=== PATIENT | female | born 1975 | race Caucasian/White ===

== ENCOUNTER → 2017-06-10 | Outpatient (POV) | payer MEDICAID, SELFPAY | PROVIDERS: Family Provider Emergency Medicine; PCP Emergency Medicine; Visit Provider Specialist | DX: R53.1 Weakness (principal) | CPT/HCPCS: 95886; 95909 ==

== ENCOUNTER → 2017-08-02 11:52 | Outpatient (CLI) | payer MEDICAID, SELFPAY ==
[2017-08-02 13:06] LABS: Total Protein,Serum 7.4 gm/dL (6.4-8.2)
[2017-08-02 13:30] LABS: Erythrocyte Sedimentation Rate 26 mm/hr (0-20)
[2017-08-03 19:10] LABS: C-Reactive Protein, Cardiac 12.17 mg/L (0.00-3.00)
[2017-08-06 06:27] LABS: Lead, Blood None Detected ug/dL (0-19)
[2017-08-06 06:30] LABS: Arsenic, Blood 4 ug/L (2-23); Mercury, Blood None Detected ug/L (0.0-14.9)
== END ==
PROVIDERS: PCP Emergency Medicine; Visit Provider Emergency Medicine
DX: M79.603 Pain in arm, unspecified (principal)
CPT/HCPCS: 36415; 82175; 83655; 83825; 84155; 85651; 86141; 86617

== ENCOUNTER → 2017-08-19 12:20 | Outpatient (REF) | payer MEDICAID, SELFPAY ==
[2017-08-19 19:24] LABS: C-Reactive Protein 1.2 mg/L (0.0-0.9)
== END ==
LOC: LAB 12:20
PROVIDERS: Visit Provider Emergency Medicine
DX: G62.9 Polyneuropathy, unspecified (principal); M79.603 Pain in arm, unspecified; R52 Pain, unspecified
CPT/HCPCS: 86140

== ENCOUNTER → 2017-10-21 11:12 | Outpatient (CLI) | payer MEDICAID, SELFPAY ==
[2017-10-21 11:40] LABS: Basophils % 0.5 % (0.1-2.0); Eosinophils # 0.1 K/mm3 (0.0-0.4); Eosinophils % 1.3 % (0.1-12.0); Hemoglobin 14.9 g/dL (12.2-16.2); Lymphocytes # 2.4 K/mm3 (0.7-4.5); Lymphocytes % 29.9 K/mm3 (10-50); Mean Corpuscular HGB Conc 33.1 g/dL (31.8-35.4); Mean Corpuscular Hemoglobin 30.9 pg (27.0-31.2); Mean Corpuscular Volume 93.4 fl (81-99); Mean Platelet Volume 8.7 fl (7.4-10.4); Monocytes # 0.3 K/mm3 (0.1-1.0); Monocytes % 3.7 % (1.7-9.3); Neutrophils # 5.1 K/mm3 (1.8-7.8); Neutrophils % 64.5 % (37.0-80.0); Platelet Count 264 K/mm3 (142-424); Red Blood Count 4.82 M/mm3 (4.20-5.40); Red Cell Distribution Width 12.7 % (11.5-17.5); White Blood Count 7.9 K/mm3 (4.8-10.8)
[2017-10-21 16:20] LABS: Creatine Kinase 81 U/L (26-192)
[2017-10-22 11:19] LABS: Anti-Jo-1 <0.2 AI (0.0-0.9); Anti-Smith Antibody <0.2 AI (0.0-0.9); Antichromatin Antibodies <0.2 AI (0.0-0.9); Antiscleroderma-70 Antibodies <0.2 AI (0.0-0.9); RNP Antibodies <0.2 AI (0.0-0.9); Sjogren's Anti-SS-A <0.2 AI (0.0-0.9); Sjogren's Anti-SS-B <0.2 AI (0.0-0.9)
[2017-10-23 06:17] LABS: Aldolase 4.2 U/L (3.3-10.3); Anti-Centromere B Antibodies <0.2 AI (0.0-0.9); Anti-DNA (DS) Ab Qn 1 IU/mL (0-9); Folate 13.2 ng/mL (>3.0); Vitamin B12 339 pg/mL (232-1245)
== END ==
PROVIDERS: Family Provider Emergency Medicine; PCP Emergency Medicine; Visit Provider Specialist
DX: M25.529 Pain in unspecified elbow (principal); E66.3 Overweight
CPT/HCPCS: 36415; 82085; 82550; 82607; 82746; 85025; 86038

== ENCOUNTER → 2017-12-19 15:41 | Outpatient (CLI) | payer MEDICAID, SELFPAY | PROVIDERS: PCP Emergency Medicine; Visit Provider Nurse Practitioner Family | DX: G47.34 Idiopathic sleep related nonobstructive alveolar hypoventilation (principal); R53.83 Other fatigue | CPT/HCPCS: 95806 ==

== ENCOUNTER → 2018-01-15 08:30 | Outpatient (CLI) | payer MEDICAID, SELFPAY ==
--- NOTE | 2018-01-15 08:32 | US_ITS ---
US gallbladder Ordering Physician: Jhonny Bass MD Patient Age: 42 years: Female HISTORY: ITS.REASON: nausea, vomiting and diarrhea Nausea vomiting diarrhea TECHNIQUE: Right quadrant ultrasound COMPARISON :None FINDINGS Pancreas. Unremarkable. Head body and tail pancreas satisfactory. Liver. A few focal areas of minimal fatty change No significant focal lesions no bili ductal dilatation. The portal vein appears normal direction flow. Common duct normal diameter measuring less than 4 mm at hilum of liver. Right kidney 11.6 in length cortex well-maintained. Normal. Gallbladder. Numerous Scattered small polyps about the margin of the gallbladder. The larger proximal measuring 3 days 3.5 mm majority are quite small as seen in both the anterior and posterior wall. Upper normal gallbladder wall thickening otherwise seen. These polyps appear to be fixed to the wall and do not move between supine and decubitus imaging as per technologist.. No echogenic stones identified minimal sludge was noted IMPRESSION: ---- 1. Numerous small polyps of the gallbladder Minimal sludge in gallbladder No evident stones identified. 2. Liver. A few areas of subtle fatty changes noted but no focal lesion.
== END ==
PROVIDERS: Family Provider Emergency Medicine; PCP Emergency Medicine; Visit Provider Emergency Medicine
DX: R11.2 Nausea with vomiting, unspecified (principal); R19.7 Diarrhea, unspecified
CPT/HCPCS: 76705

== ENCOUNTER → 2018-02-05 10:12 | Outpatient (CLI) | payer MEDICAID, SELFPAY ==
--- NOTE | 2018-02-05 10:14 | NM_ITS ---
NM hepatobiliary w pharm HISTORY: ITS.REASON: RUQ pain ORDERING PHYSICIAN: ERIBERTO Purcell PATIENT AGE: 42 years COMPARISON: None DOSE: 8.35 MCI TC Choletec Inj Into RT ANT Fatty Meal Ensure. No pain reported with fatty meal FINDINGS: Homogeneous activity is present within the hepatic parenchyma. Activity is present in the gallbladder by 15 minutes. Activity is present in the small bowel by 20 minutes. The gallbladder ejection fraction is calculated to be 53% The patient did not report pain or other symptoms with fatty meal. IMPRESSION: Unremarkable hepatobiliary scan and gallbladder ejection fraction. No evidence of common or cystic duct obstruction with normal gallbladder ejection fraction
== END ==
PROVIDERS: Family Provider Emergency Medicine; PCP Emergency Medicine; Visit Provider Physician Assistant
DX: R10.9 Unspecified abdominal pain (principal)
CPT/HCPCS: 78227; A9537

== ENCOUNTER → 2018-02-11 09:56 | Outpatient (REF) | payer MEDICAID, SELFPAY ==
[2018-02-11 14:09] LABS: Amphetamine/Metha Screen,Urine Negative ng/mL (<1000); Barbiturates Screen,Urine Negative ng/mL (<200); Benzodiazepines Screen,Urine Negative ng/mL (<200); Cannabinoid Screen,Urine Negative ng/mL (<50); Cocaine Screen,Urine Negative ng/mL (<300); Methadone Screen,Urine Negative ng/mL (<300); Opiate Screen,Urine Negative ng/mL (<300); Phencyclidine Screen,Urine Negative ng/mL (<25)
== END ==
LOC: LAB 09:56
PROVIDERS: Visit Provider Nurse Practitioner Family
DX: R68.89 Other general symptoms and signs (principal)
CPT/HCPCS: 80305

== ENCOUNTER → 2018-03-24 10:33 | Outpatient (REF) | payer MEDICAID, SELFPAY ==
[2018-03-24 14:51] LABS: Amphetamine/Metha Screen,Urine Negative ng/mL (<1000); Barbiturates Screen,Urine Negative ng/mL (<200); Benzodiazepines Screen,Urine Negative ng/mL (<200); Cannabinoid Screen,Urine Negative ng/mL (<50); Cocaine Screen,Urine Negative ng/mL (<300); Methadone Screen,Urine Negative ng/mL (<300); Opiate Screen,Urine Negative ng/mL (<300); Phencyclidine Screen,Urine Negative ng/mL (<25)
== END ==
LOC: LAB 10:33
PROVIDERS: Visit Provider Emergency Medicine
DX: R68.89 Other general symptoms and signs (principal)
CPT/HCPCS: 80305

== ENCOUNTER → 2018-05-06 16:54 | Outpatient (CLI) | payer MEDICAID, SELFPAY ==
--- NOTE | 2018-05-06 16:56 | MM_ITS ---
MM Dig screening mamm BI w/CAD ORDERING PHYSICIAN : Kuldeep Henley MD PATIENT AGE: 42 years GENDER: Female COMPARISON: January 2016, April 2014, March 2011 INDICATION: ITS.REASON: Routine Screening Mammogram no hormones. No new complaints. . Positive family history: Mother with breast cancer age 32 TECHNIQUE: Standard CC and MLO images were obtained. R2 CAD reviewed. Additional axillary cc views bilaterally FINDINGS: Dense breast bilaterally. Mammography decreased sensitivity in breast of this diffuse increased density. Ultrasound can be useful compliment/augment to screening mammography in this setting, particularly if any palpable areas encountered. However the prior study is helpful and demonstrates a similar parenchymal pattern and distribution with no new areas of significant concern. CAD computer review highlights no 70 areas of concern either. . IMPRESSION: ... Stable mammogram. Dense breast bilaterally decreased sensitivity of mammography. Ultrasound can be useful compliment/augment mammography in breast of this increased density, particularly if any palpable areas encountered. However I see no new areas significant concern when compared to previous studies Follow up mammogram 1 year recommended . BI-RADS Category: 2 Benign Finding(s) RECOMMENDED FOLLOW-UP: 1YR 1 YEAR FOLLOW-UP (A letter has been sent to the patient regarding results of the study.)
== END ==
PROVIDERS: PCP Emergency Medicine; Visit Provider Nurse Practitioner Obstetrics & Gynecology
DX: Z12.31 Encounter for screening mammogram for malignant neoplasm of breast (principal)
CPT/HCPCS: 77067

== ENCOUNTER → 2018-10-27 10:35 | Outpatient (CLI) | payer MEDICAID, SELFPAY ==
[2018-10-27 14:27] LABS: Amphetamine/Metha Screen,Urine Negative ng/mL (<1000); Barbiturates Screen,Urine Negative ng/mL (<200); Benzodiazepines Screen,Urine Negative ng/mL (<200); Cannabinoid Screen,Urine Negative ng/mL (<50); Cocaine Screen,Urine Negative ng/mL (<300); Methadone Screen,Urine Negative ng/mL (<300); Opiate Screen,Urine Negative ng/mL (<300); Phencyclidine Screen,Urine Negative ng/mL (<25)
== END ==
PROVIDERS: PCP Nurse Practitioner Family; Visit Provider Nurse Practitioner Family
DX: R00.2 Palpitations (principal); G89.29 Other chronic pain
CPT/HCPCS: 80305; 93005; 93225; 93226

== ENCOUNTER → 2018-10-29 13:51 | Outpatient (CLI) | payer MEDICAID, SELFPAY ==
[2018-10-29 15:26] LABS: Basophils % 0.5 % (0.1-2.0); Eosinophils # 0.1 K/mm3 (0.0-0.4); Eosinophils % 1.8 % (0.1-12.0); Hematocrit 41.1 % (37.0-47.0); Hemoglobin 13.9 g/dL (12.2-16.2); Lymphocytes # 2.8 K/mm3 (0.7-4.5); Mean Corpuscular HGB Conc 33.8 g/dL (31.8-35.4); Mean Corpuscular Hemoglobin 30.6 pg (27.0-31.2); Mean Corpuscular Volume 90.5 fl (81-99); Mean Platelet Volume 8.2 fl (7.4-10.4); Monocytes # 0.3 K/mm3 (0.1-1.0); Monocytes % 3.8 % (1.7-9.3); Neutrophils # 4.5 K/mm3 (1.8-7.8); Platelet Count 283 K/mm3 (142-424); Red Blood Count 4.55 M/mm3 (4.20-5.40); Red Cell Distribution Width 13.2 % (11.5-17.5); White Blood Count 7.8 K/mm3 (4.8-10.8)
[2018-10-29 16:33] LABS: Alanine Aminotransferase 29 U/L (12-78); Albumin Level 3.4 gm/dL (3.4-5.0); Albumin/Globulin Ratio 0.9 (1.1-1.8); Alkaline Phosphatase 124 U/L (46-116); Aspartate Amino Transferase 10 U/L (15-37); Bilirubin,Total 0.3 mg/dL (0.2-1.0); Blood Urea Nitrogen 12 mg/dL (7-18); Calcium 8.8 mg/dL (8.5-10.1); Carbon Dioxide 24 mmol/L (21.0-32.0); Chloride 106 mmol/L (98-107); Chol/HDL Ratio 4.6 (1-3.5); Cholesterol 182 mg/dL (140-200); Creatinine,Serum 0.72 mg/dL (0.55-1.02); Estimated Glomerular Filt Rate 90 ml/min (>60); Free T4 (Free Thyroxine) 0.95 ng/dl (0.76-1.46); GFR (African American) 109 ML/MIN (>60); Globulin 3.7 gm/dl (1.3-3.2); Glucose 82 mg/dL (74-106); HDL Cholesterol 40 mg/dL (29-89); LDL Cholesterol 129 mg/dL (0-130); Sodium 140 mmol/L (136-145); Total Protein,Serum 7.1 gm/dL (6.4-8.2); Triglycerides 65 mg/dL (30-200); VLDL Cholesterol 13 mg/dL (0-40)
[2018-10-31 10:11] LABS: Vitamin D 25 Hydroxy 32.1 ng/mL (30.0-100.0)
== END ==
PROVIDERS: Visit Provider Nurse Practitioner Family
DX: R53.83 Other fatigue (principal); Z79.899 Other long term (current) drug therapy
CPT/HCPCS: 36415; 80053; 80061; 82652; 84439; 84443; 85025

== ENCOUNTER → 2018-11-07 09:55 | Outpatient (CLI) | payer MEDICAID, SELFPAY ==
[2018-11-07 11:55] LABS: C-Reactive Protein 1.9 mg/L (0.0-0.9)
[2018-11-07 11:59] LABS: Erythrocyte Sedimentation Rate 18 mm/hr (0-20)
[2018-11-09 17:31] LABS: Anti-Cyclic Citrullinated Pept 13 units (0-19)
== END ==
PROVIDERS: Nurse Practitioner Family; Visit Provider Internal Medicine Cardiovascular Disease
DX: R00.2 Palpitations (principal); E66.09 Other obesity due to excess calories; K21.9 Gastro-esophageal reflux disease without esophagitis; R06.00 Dyspnea, unspecified; R06.83 Snoring; R40.0 Somnolence; R53.83 Other fatigue; R94.31 Abnormal electrocardiogram [ECG] [EKG]; Z72.0 Tobacco use; R52 Pain, unspecified
CPT/HCPCS: 36415; 83880; 85651; 86140; 86200

== ENCOUNTER → 2018-11-20 13:29 | Outpatient (CLI) | payer MEDICAID, SELFPAY ==
--- NOTE | 2018-11-20 13:30 | CA_ITS ---
PROCEDURE: 2-D M-mode and color Doppler study INDICATIONS FOR THE TEST: Chest pain COPD Heart Murmur Tobacco SmokingX PalpitationsX FatigueX Syncope EdemaX HypertensionXDiabetes Mellitus Rheumatic Fever SOBXDOE ObesityXHyperlipidemiaX Family History HD Additional History PATIENT INFORMATION HEIGHT: 72 WEIGHT:271 GENDER: Female B/P:115/58 2-D/M-MODE INTERPRETATION: 2-D MEASUREMENTS OBSERVED VALUES IN CMS Right Ventricular Dimension (RVDd) 2.5 Interventricular Septum (Thickness)(IVsd) .7 Left Ventricular Internal Dimensions(LVIDd) 5.3 Left Ventricular Posterior Wall (Thickness)(LVPWd) .7 Aortic Root 3.3 Aortic Cusp Separation 1.8 Left Atrial Dimensions (LAD) 3.5 2D 1. Left atrium is normal size, left ventricle is normal size, there is no concentric left ventricular hypertrophy, visually estimated ejection fraction of 55% with no regional wall motion abnormality. 2. The right atrium and right ventricle are normal size and contractility. 3. The aortic, mitral and tricuspid valvular grossly normal. 4. The pulmonic valve is poorly visualized. 5. No significant pericardial effusion noted. DOPPLER INTERROGATION: Doppler interrogation of the aortic, mitral and tricuspid valvular presence of mild mitral and tricuspid regurgitation, tricuspid regurgitation jet velocity is inadequate for calculation of the right ventricular systolic pressure, diastolic parameters are within normal range. CONCLUSION: 1. Normal left ventricular size, preserved left ventricular systolic function, visually estimated ejection fraction of 55% with no regional wall motion abnormality. Diastolic parameters are within normal range. 2. Mild mitral and tricuspid regurgitation 3. No significant pericardial effusion noted.
== END ==
PROVIDERS: PCP Emergency Medicine; Visit Provider Internal Medicine Cardiovascular Disease
DX: R06.00 Dyspnea, unspecified (principal); R00.2 Palpitations; K21.9 Gastro-esophageal reflux disease without esophagitis; R94.31 Abnormal electrocardiogram [ECG] [EKG]; E66.09 Other obesity due to excess calories; R06.83 Snoring; R40.0 Somnolence; R53.83 Other fatigue; Z72.0 Tobacco use
CPT/HCPCS: 93306

== ENCOUNTER → 2019-02-16 08:03 | Outpatient (CLI) | payer MEDICAID, SELFPAY ==
--- NOTE | 2019-02-16 08:09 | MR_ITS ---
PROCEDURE: MR CERVICAL SPINE WO CON CLINICAL INDICATION: PAIN Neck pain and bilateral arm pain and numbness, headache COMPARISON: GARAGEMAN/O MRI-C-SPINE W/O from 01/09/2016 TECHNIQUE: Standard multiplanar multiecho sequences are performed without contrast. FINDINGS: There is slight reversal of the cervical lordosis. The cranial cervical junction has an unremarkable appearance. No malalignment. The C2-C3, C3-C4, and C4-C5 have an unremarkable appearance. C5-C6: There is narrowing of the canal at 10 mm without cord impingement. C6-C7: Narrowing of the canal is also noted at this level with minimal bulging of the disc with canal measuring 10 mm. There is a small disc osteophyte complex in the left foraminal and lateral region with mild left-sided foraminal narrowing. C7-T1: Unremarkable. No herniated disc or other significant anomaly evident and no significant change from the previous exam. The IMPRESSION: 1. Mild reversal of the cervical lordosis which may be due to patient positioning or muscle spasm. 2. 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 3. Small disc osteophyte complex left lateral and foraminal area at C6-C7 with mild left-sided foraminal narrowing. 4. Overall no significant change from the previous exam Dictated by: Boo Sánchez MD 02/17/2019 06:33 Signed by: <Electronically signed by Boo Sánchez MD in [place]> 02/17/2019 06:33
--- NOTE | 2019-02-16 08:09 | MR_ITS ---
PROCEDURE: MR LUMBAR SPINE WO CON CLINICAL INDICATION: PAIN Low back pain worse when bending, left leg numbness COMPARISON: TSW/O MRI-T-SPINE W/O from 01/09/2016 TECHNIQUE: Standard multiplanar multiecho sequences are performed without contrast. 3-D MIP and myelographic images are also rendered and reviewed FINDINGS: Normal alignment. The spinal cord ends at the L1 level. T11-T12: Small left paracentral disc protrusion without impingement. T12-L1, L1-L2, L2-L3, and L3-L4 have an unremarkable appearance. L4-5: Minimal bulging disc with small central disc protrusion with annular fissure noted. There is a small broad-based right paracentral and foraminal disc protrusion which is causing right lateral recess and foraminal narrowing and abutting the anterior aspect of the right L5 nerve root. L5-S1: Degenerate disc disease with mild bulging disc along with facet hypertrophic change with mild bilateral lateral recess narrowing. Probable lipoma/hemangioma at L1 laterally on the right. Nonspecific small T2 hyperintensities involve the central aspect of T12 and L1 vertebral bodies and may be due to small hemangiomas IMPRESSION: 1. L4-5: Minimal bulging disc with small central disc protrusion with annular fissure noted. There is a small broad-based right paracentral and foraminal disc protrusion which is causing right lateral recess and foraminal narrowing and abutting the anterior aspect of the right L5 nerve root. 2. L5-S1: Degenerate disc disease with mild bulging disc along with facet hypertrophic change with mild bilateral lateral recess narrowing. 3. Small left paracentral disc protrusion at T11-T12 Dictated by: Boo Sánchez MD 02/18/2019 06:43 Signed by: <Electronically signed by Boo Sánchez MD in [place]> 02/18/2019 06:43
== END ==
PROVIDERS: PCP Emergency Medicine; Visit Provider Specialist
DX: G62.9 Polyneuropathy, unspecified (principal); M54.5 Low back pain; M79.601 Pain in right arm; M79.602 Pain in left arm; M79.604 Pain in right leg; M79.605 Pain in left leg; R52 Pain, unspecified; M48.02 Spinal stenosis, cervical region; M54.2 Cervicalgia; R51 Headache
CPT/HCPCS: 72141; 72148; 76376

== ENCOUNTER → 2019-03-02 13:25 | Outpatient (POV) | payer MEDICAID, SELFPAY | PROVIDERS: Visit Provider Specialist | DX: M54.5 Low back pain (principal); M79.604 Pain in right leg; M79.605 Pain in left leg; M54.2 Cervicalgia; R52 Pain, unspecified; M79.601 Pain in right arm; M79.602 Pain in left arm | CPT/HCPCS: 95886; 95909 ==

== ENCOUNTER → 2020-04-18 08:59 | Outpatient (POV) | payer MEDICAID, SELFPAY ==
[2020-04-18 09:32] VITALS: BP 117/81; PULSE 99; RESP 18; O2SAT 98; BMI 36.7
--- NOTE | 2020-04-18 10:05 | HMH.PMCON ---
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 I answered all of her questions. I will follow up with her afterwards reassess her symptoms at that time she is not on any anticoagulation therapy. We discussed that this will help us determine her pain generator. If she gets relief from this we will move on to work on her other areas including her cervical spine and lumbar back pain. She has been instructed to call the office if she has any issues prior to her next appointment. Dr. Arndt has reviewed this note and agrees with this plan of care. This note was dictated using voice recognition software and may contain errors or omissions HPI - Data of Consult Consult date: 04/18/20 Requesting Physician: Amber Humphries APRN Primary Care Provider: Jhonny Bass MD - Consult Narrative Reason for consult: Back pain History of present illness: Ms. Caraballo is a 44 year old female who presents today for consultation regards to her thoracic back pain. Patient was seen in our office back in 2016. Patient at that time did not we will move forward with injective therapy however today she states that she is having the same pain and it is worsening. She rates her pain a 6 out of 10. She has neck pain going all the way down to her lower back but her worst pain is between her shoulder blades. She is currently in physical therapy which does help. She is on gabapentin, cyclobenzaprine, amitriptyline from her primary care physician. Patient is currently not on any anticoagulation therapy. She has a thoracic MRI showing degenerative changes throughout her spine. Has had this pain for over 2 years. She is failed conservative medical occasions and physical therapy over the last 6 months. CC: Amber Humphries APRN [facility] History I have reviewed the patient's past medical history: Yes Medical History: Reports:: Gastroesophageal Reflux Disease(GERD), Migraine Denies:: Cancer, Diabetes Mellitus Type 1, Diabetes Mellitus Type 2, MRSA *Have you ever received a pneumonia vaccine?: Yes *Have you received a flu vaccine this season?: Yes Other Medical History: Reports: Arthritis, Fibromyalgia, Other Other Surgeries: Yes: No Previous Surgery, , Diagnostic Lap, Hysterectomy-Partial, Tubal Ligation, Other Amputation: No Fractures: No - *Social History Smoking Status: Current every day smoker Tobacco Type: cigarettes # Packs/Day (cigarettes): 1 #Yrs smoked (if former smoker): 20 Alcohol Intake: never Alcohol Intake Frequency:: other Substance Use Type: denies use *Occupational Status:: other Housing: house Household Members: other *Travel in the last 8 weeks: None Family Hx:: Unable to obtain 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 Gastrointestinal: no new onset incontinence, normal bowel movements reported Genitourinary: no new onset incontinence Musculoskeletal: Thoracic back pain Psychiatric: normal mood/ affect Neurological: [denies new onset weakness in extremities], [denies new onset balance issues] Meds Home Medications Medication Instructions Recorded Confirmed Type cetirizine 10 mg tablet See Rx Instructions .ROUTE 03/
== END ==
PROVIDERS: PCP Emergency Medicine; Visit Provider Clinical Nurse Specialist Family Health
DX: M47.894 Other spondylosis, thoracic region (principal); M54.14 Radiculopathy, thoracic region; M79.7 Fibromyalgia
CPT/HCPCS: 99202

== ENCOUNTER 2020-04-18 14:00 | Outpatient (RCR) | payer MEDICAID, SELFPAY ==
--- NOTE | 2020-03-29 17:53 | HMH.PTOPEV ---
PT Outpatient Evaluation Rehab PT Outpatient Evaluation Start: 03/29/20 17:06 Freq: Status: Active Protocol: Document 03/29/20 17:39 KEYUR (Rec: 03/29/20 17:53 KEYUR [id number]) Electronically Signed By John Solis, PT 03/29/20 17:39 Outpatient Therapy Subjective History Subjective History Patient is a 44 year old female presenting to outpatient PT with reports of chronic LBP with intermittent B radicular symptoms. Normally R>L, but has recently switched to L>R as symptoms have progressively gotten worse over the past month. No specific MAGNUS to report. Most recent imaging indicates multi-level DDD/bulging discs. Comorbidities include hx of hysterectomy and . Chief Complaint Pain,Paresthesia Symptom Type Ache,Burning,Numbness Symptoms Relieved By Rest/Positioning,Heat, Prescription Meds Prior Functional Limitations None Current Functional Limitations Lifting,Housework,Standing, Recreation Activity,Walking, Bending/Stooping Symptom Description Constant but Variable Level of pain today (0-10) 5 Pain scale - at its best (0-10) 2 Pain scale - at its worst (0-10) 9 Lumbopelvic Eval Posture Thoracic Spine Posture Standing Position Increased Kyphosis Lumbar Spine Posture Standing Position Increased Lordosis Assistive device Assistive Devices None / NA Palapation tenderness bilateral Lumbar/Sacral Palpation Findings Tenderness Lumbar/Sacral Palpation Overall Comment B PSIS 3/4 Accessory Movement L4 bilateral L5 bilateral S1 bilateral Range of Motion Lumbar Spine Active Flexion Range of 68 Motion (degrees) Lumbar Spine Active Extension Range of 18 Motion (degrees) Left Lumbar Spine Lateral Flexion Active 22 Range of Motion (degrees) Right Lumbar Spine Lateral Flexion 28 Active Range of Motion (degrees) Lumbar Spine ROM Limitations Soft Tissue Tightness,Bony Restriction Manual Muscle Test Bilateral Knee Extension Strength Grade 5 Normal Knee Flexion Strength Grade 5 Normal Hip Flexion Strength Grade 4 Good Ankle Dorsiflexion Strength Grade 5 Normal Gastronemius/Soleus Strength Grade 5 Normal DTR Rt Patellar 2+ Lt Patellar
== END 2020-04-18 14:05 | disposition home or self-care (01) ==
LOC: PT 14:00
PROVIDERS: PCP Nurse Practitioner Family; Visit Provider Emergency Medicine
DX: M54.5 Low back pain (principal)
CPT/HCPCS: 97010; 97012; 97014; 97033; 97110; 97163; G0283

== ENCOUNTER → 2020-04-22 12:54 | Outpatient (CLI) | payer MEDICAID, SELFPAY ==
--- NOTE | 2020-04-22 12:54 | MR_ITS ---
PROCEDURE: MR HEAD/BRAIN WO CON CLINICAL INDICATION: Recurrent headaches Frequent headache COMPARISON: No exams were available for comparison TECHNIQUE: Routine multiplanar multi echo sequences are performed without gadolinium enhancement. FINDINGS: No midline shift, mass effect, intracranial hemorrhage, or hydrocephalus. No evidence of acute infarction. The cerebellopontine angles, cerebellum, and brainstem have an unremarkable appearance. Partial empty sella is present as a normal variant. The optic chiasm, corpus callosum, and craniocervical junction have an unremarkable appearance. There are a few scattered T2 white matter hyperintensities which are nonspecific in the frontal lobes and left parietal lobe. Lobular mucosal thickening involves the sphenoid sinus anteriorly at 9 mm and the right maxillary sinus inferiorly at 12 mm consistent with retention cyst. No mastoid effusion. IMPRESSION: 1. No acute intracranial findings. 2. Few scattered nonspecific T2 white matter hyperintensities. Differential diagnosis would include small gliotic foci, sequela from migraine headache, or demyelinating process. Please correlate with clinical parameters. 3. Mild sinus disease Dictated by: Boo Sánchez MD 04/23/2020 11:46 Boo Sánchez MD in [place] 04/23/2020 11:46
== END ==
PROVIDERS: PCP Emergency Medicine; Visit Provider Specialist
DX: R51.9 Headache, unspecified (principal)
CPT/HCPCS: 70551

== ENCOUNTER → 2020-05-10 10:39 | Outpatient (POV) | payer MEDICAID, SELFPAY | PROVIDERS: Visit Provider Otolaryngology | DX: Z00.00 Encounter for general adult medical examination without abnormal findings (principal) ==

== ENCOUNTER → 2020-06-07 16:24 | Outpatient (CLI) | payer MEDICAID, SELFPAY ==
[2020-06-07 17:36] LABS: Alanine Aminotransferase 16 U/L (12-78); Albumin Level 3.8 g/dl (3.5-5.0); Albumin/Globulin Ratio 1.2 (1.1-1.8); Alkaline Phosphatase 129 U/L (38-126); Anion Gap 11.3 mEq/L (5-15); Aspartate Amino Transferase 20 U/L (14-36); Basophils # 0.1 K/mm3 (0-0.2); Basophils % 0.5 % (0.1-2.0); Bilirubin,Total 0.4 mg/dl (0.2-1.3); Blood Urea Nitrogen 16 mg/dl (7-17); Calcium 9.5 mg/dl (8.4-10.2); Carbon Dioxide 28 mmol/L (22.0-30.0); Chloride 104 mmol/L (98-107); Chol/HDL Ratio 4.4 (1-3.5); Cholesterol 186 mg/dl (140-200); Eosinophils # 0.2 K/mm3 (0.0-0.4); Estimated Glomerular Filt Rate 92 ml/min (>60); GFR (African American) 111 ML/MIN (>60); Globulin 3.1 g/dL (1.3-3.2); Glucose 107 mg/dl (74-100); HDL Cholesterol 42 mg/dl (40-60); Hematocrit 41.7 % (37.0-47.0); Hemoglobin 13.8 g/dL (12.2-16.2); Lymphocytes # 3.1 K/mm3 (0.7-4.5); Lymphocytes % 31.2 % (10-50); Mean Platelet Volume 9.3 fl (7.4-10.4); Monocytes # 0.4 K/mm3 (0.1-1.0); Monocytes % 4.1 % (1.7-9.3); Neutrophils # 6.1 K/mm3 (1.8-7.8); Neutrophils % 62.1 % (37.0-80.0); Platelet Count 335 K/mm3 (142-424); Potassium 4.3 mmoL/L (3.5-5.1); Red Blood Count 4.59 M/mm3 (4.20-5.40); Red Cell Distribution Width 14.2 % (11.5-17.5); Sodium 139 mmol/L (136-145); Total Protein,Serum 6.9 g/dl (6.3-8.2); Triglycerides 101 mg/dl (30-150); VLDL Cholesterol 20 mg/dL (0-40); White Blood Count 9.7 K/mm3 (4.8-10.8)
[2020-06-07 17:48] LABS: Direct LDL Cholesterol 129.31 mg/dL (100-129)
[2020-06-07 17:51] LABS: 25-OH Vitamin D, Total 23.7 ng/mL (30-100)
[2020-06-07 17:53] LABS: Free T4 (Free Thyroxine) 1.19 ng/dl (0.78-2.19)
[2020-06-07 18:09] LABS: Thyroid Stimulating Hormone 2.35 uIU/mL (0.465-4.68)
== END ==
PROVIDERS: Visit Provider Emergency Medicine
DX: E66.9 Obesity, unspecified (principal); E55.9 Vitamin D deficiency, unspecified; Z79.899 Other long term (current) drug therapy
CPT/HCPCS: 80053; 80061; 82306; 84439; 84443; 85025

== ENCOUNTER → 2021-01-06 17:24 | Outpatient (CLI) | payer MEDICAID, SELFPAY ==
[2021-01-06 18:40] LABS: Amphetamine/Metha Screen,Urine Negative ng/ml (<1000)
[2021-01-06 18:41] LABS: Barbiturates Screen,Urine Negative ng/ml (<200); Benzodiazepines Screen,Urine Negative ng/ml (<200)
[2021-01-06 18:42] LABS: Cannabinoid Screen,Urine Negative ng/ml (<50); Cocaine Screen,Urine Negative ng/ml (<300)
[2021-01-06 18:43] LABS: Methadone Screen,Urine Negative ng/ml (<300)
[2021-01-06 18:44] LABS: Opiate Screen,Urine Negative ng/ml (<300)
[2021-01-06 18:46] LABS: Phencyclidine Screen,Urine Negative ng/ml (<25)
== END ==
PROVIDERS: Visit Provider Emergency Medicine
DX: Z79.899 Other long term (current) drug therapy (principal)
CPT/HCPCS: 80305

== ENCOUNTER → 2021-08-21 14:17 | Outpatient (CLI) | payer MEDICAID, SELFPAY ==
[2021-08-21 16:05] LABS: Basophils # 0.1 K/mm3 (0-0.2); Eosinophils # 0.1 K/mm3 (0.0-0.4); Eosinophils % 0.8 % (0.1-12.0); Hematocrit 43.1 % (37.0-47.0); Hemoglobin 14.5 g/dL (12.2-16.2); Lymphocytes # 2.7 K/mm3 (0.7-4.5); Lymphocytes % 31.4 % (10-50); Mean Corpuscular HGB Conc 33.7 g/dL (31.8-35.4); Mean Corpuscular Hemoglobin 30.4 pg (27.0-31.2); Mean Corpuscular Volume 90.2 fl (81-99); Mean Platelet Volume 8.8 fl (7.4-10.4); Monocytes # 0.3 K/mm3 (0.1-1.0); Neutrophils # 5.4 K/mm3 (1.8-7.8); Neutrophils % 62.8 % (37.0-80.0); Platelet Count 350 K/mm3 (142-424); Red Blood Count 4.78 M/mm3 (4.20-5.40); Red Cell Distribution Width 13.9 % (11.5-17.5); White Blood Count 8.7 K/mm3 (4.8-10.8)
[2021-08-21 16:37] LABS: Alanine Aminotransferase 29 U/L (12-78); Albumin Level 4.2 g/dl (3.5-5.0); Albumin/Globulin Ratio 1.6 (1.1-1.8); Alkaline Phosphatase 128 U/L (38-126); Anion Gap 11.3 mEq/L (5-15); Aspartate Amino Transferase 28 U/L (14-36); Bilirubin,Total 0.6 mg/dl (0.2-1.3); Blood Urea Nitrogen 10 mg/dl (7-17); Calcium 9.2 mg/dl (8.4-10.2); Carbon Dioxide 26 mmol/L (22.0-30.0); Chloride 104 mmol/L (98-107); Chol/HDL Ratio 4.2 (1-3.5); Cholesterol 186 mg/dl (140-200); Estimated Glomerular Filt Rate 109 ml/min (>60); GFR (African American) 132 ML/MIN (>60); Globulin 2.7 g/dL (1.3-3.2); Glucose 87 mg/dl (74-100); HDL Cholesterol 44 mg/dl (40-60); Potassium 4.3 mmoL/L (3.5-5.1); Sodium 137 mmol/L (136-145); Total Protein,Serum 6.9 g/dl (6.3-8.2); Triglycerides 99 mg/dl (30-150); VLDL Cholesterol 20 mg/dL (0-40)
[2021-08-21 16:53] LABS: Free T4 (Free Thyroxine) 1.18 ng/dl (0.78-2.19)
[2021-08-21 16:54] LABS: 25-OH Vitamin D, Total 37.2 ng/mL (30-100)
[2021-08-21 17:07] LABS: Thyroid Stimulating Hormone 1.43 uIU/mL (0.465-4.68)
== END ==
PROVIDERS: Visit Provider Emergency Medicine
DX: E66.9 Obesity, unspecified (principal); E55.9 Vitamin D deficiency, unspecified; Z68.36 Body mass index [BMI] 36.0-36.9, adult; Z79.899 Other long term (current) drug therapy
CPT/HCPCS: 36415; 80053; 80061; 82306; 84439; 84443; 85025

== ENCOUNTER → 2021-08-29 15:13 | Outpatient (CLI) | payer MEDICAID, SELFPAY ==
--- NOTE | 2021-08-29 15:19 | MR_ITS ---
PROCEDURE INFORMATION: Exam: MR Lumbar Spine Without Contrast Exam date and time: 08/29/2021 3:19 PM Age: 45 years old Clinical indication: Low back pain; Additional info: Back pain. Lbp. Pain when bending over. When standing pain down lt leg. When sitting bilateral leg pain. No injury or trauma. TECHNIQUE: Imaging protocol: Multiplanar magnetic resonance images of the lumbar spine without intravenous contrast. COMPARISON: MR LUMBAR SPINE WO CON 02/16/2019 8:20 AM FINDINGS: Vertebrae: Unremarkable. Spinal cord: Normal signal. No cord compression. T11-T12: 2 mm left paracentral disc protrusion. L1-L2: 1 mm disc bulge. No significant spinal canal stenosis. No neural foraminal stenosis. L2-L3: No significant disc disease. No significant spinal canal stenosis. No neural foraminal stenosis. L3-L4: No significant disc disease. No significant spinal canal stenosis. No neural foraminal stenosis. L4-L5: Small central annular tear and 2 mm right proximal foraminal disc protrusion with spondylosis and mild facet/ligament hypertrophy, results in mild right foraminal stenosis. L5-S1: 1-2 mm disc bulge with mild facet/ligament hypertrophy results in borderline left foraminal stenosis. Soft tissues: Unremarkable. IMPRESSION: 1. L4-L5: Small central annular tear with small right proximal foraminal disc protrusion, spondylosis and facet/ligament hypertrophy, resulting in mild right foraminal stenosis. 2. L5-S1: Mild spondylosis with facet/ligament hypertrophy, resulting in borderline left foraminal stenosis. 3. Additional findings: T11-12: Small left paracentral disc protrusion. L1-L2: Small disc bulge.
--- NOTE | 2021-08-29 15:19 | MR_ITS ---
FINAL REPORT CLINICAL HISTORY: neck pain. headache. bilateral arm pain, numbness and tingling xyrs. no injury or trauma. COMPARISON: 02/16/2019 FINDINGS: Multiplanar MR imaging of the cervical spine was performed without contrast. On the sagittal T2-weighted images, disc degeneration is seen throughout. There is mild kyphosis centered on C5-6. There is no evidence of fracture. The vertebral alignment is normal. The cervical spinal cord has an unremarkable appearance without evidence of mass, edema or syrinx. No significant canal stenosis is identified. The cervicomedullary junction is normal. C2-3: There is no significant canal stenosis or neural foraminal narrowing. C3-4: There is no significant canal stenosis or neural foraminal narrowing. C4-5: An annular bulge and small uncovertebral osteophytes are present. There is mild bilateral neural foraminal narrowing. C5-6: Disc osteophyte complex is present. There is a right foraminal disc protrusion with moderate bilateral neural foraminal narrowing. C6-7: An annular bulge and uncovertebral osteophytes are present. There is a left foraminal disc protrusion with moderate right and severe left neural foraminal narrowing. C7-T1: An annular bulge is present with mild left neural foraminal narrowing. IMPRESSION: Multilevel degenerative disc disease and spondylosis. Right foraminal disc protrusion at C5-6 and left foraminal disc protrusion at C6-7. Findings are stable since prior. Reviewed, Interpreted and Dictated by Efrem Melendez III, MD Transcribed by Samantha Mcdonnell Authenticated by Efrem Melendez III, MD on 08/29/2021 04:53:34 PM [facility]
== END ==
PROVIDERS: PCP Emergency Medicine; Visit Provider Emergency Medicine
DX: M54.2 Cervicalgia (principal); M54.9 Dorsalgia, unspecified; M54.50 Low back pain, unspecified
CPT/HCPCS: 72141; 72148; 76376

== ENCOUNTER → 2021-09-22 15:07 | Outpatient (CLI) | payer MEDICAID, SELFPAY | PROVIDERS: PCP Emergency Medicine; Visit Provider Nurse Practitioner Family | DX: G47.33 Obstructive sleep apnea (adult) (pediatric) (principal); R53.83 Other fatigue; R51.9 Headache, unspecified | CPT/HCPCS: 95806 ==

== ENCOUNTER → 2021-10-16 08:43 | Outpatient (CLI) | payer MEDICAID, SELFPAY ==
[2021-10-16 19:53] LABS: Amphetamine/Metha Screen,Urine Negative ng/ml (<1000)
[2021-10-16 19:54] LABS: Barbiturates Screen,Urine Negative ng/ml (<200)
[2021-10-16 19:55] LABS: Benzodiazepines Screen,Urine Negative ng/ml (<200); Cannabinoid Screen,Urine Negative ng/ml (<50)
[2021-10-16 19:56] LABS: Cocaine Screen,Urine Negative ng/ml (<300)
[2021-10-16 19:57] LABS: Methadone Screen,Urine Negative ng/ml (<300); Opiate Screen,Urine Positive ng/ml (<300)
[2021-10-16 20:11] LABS: Phencyclidine Screen,Urine Negative ng/ml (<25)
== END ==
PROVIDERS: PCP Emergency Medicine; Visit Provider Emergency Medicine
DX: E11.9 Type 2 diabetes mellitus without complications (principal); Z79.4 Long term (current) use of insulin
CPT/HCPCS: 80305

== ENCOUNTER → 2021-10-23 15:58 | Outpatient (CLI) | payer MEDICAID, SELFPAY ==
--- NOTE | 2021-10-23 15:59 | MM_ITS ---
PROCEDURE INFORMATION: Exam: MG Bilateral Screening 3D Mammography Exam date and time: 10/23/2021 3:51 PM Age: 45 years old Clinical indication: Screening examination. Her mother had breast cancer at age 32. TECHNIQUE: Imaging protocol: Bilateral Screening tomosynthesis and 2D mammography including computer-aided detection (CAD) when performed. COMPARISON: 1. MG SCBI MM Dig screening mamm BI w/CAD 05/06/2018 5:02 PM 2. MG DMSB DIG MAMM-SCREEN VIPUL 01/30/2016 9:02 AM FINDINGS: MAMMOGRAPHY: Breast composition: The breasts are heterogeneously dense, which may obscure small masses. Mass: None. Architectural distortion: None. Calcifications: No suspicious calcifications. Asymmetric density: None. Skin thickening: None. Axillary adenopathy: None. IMPRESSION: No mammographic evidence of malignancy. Annual screening is recommended unless otherwise clinically indicated. Given the reported risk factors coupled with the patient's breast density, a breast cancer risk assessment may prove useful for further evaluation. ASSESSMENT: BI-RADS Category 1: Negative
== END ==
PROVIDERS: PCP Emergency Medicine; Visit Provider Emergency Medicine
DX: Z12.31 Encounter for screening mammogram for malignant neoplasm of breast (principal)
CPT/HCPCS: 77063; 77067

== ENCOUNTER → 2021-12-14 07:06 | Outpatient (CLI) | payer MEDICAID, SELFPAY ==
[2021-12-13 19:55] LABS: Amphetamine/Metha Screen,Urine Negative ng/ml (<1000)
[2021-12-13 19:56] LABS: Barbiturates Screen,Urine Negative ng/ml (<200); Benzodiazepines Screen,Urine Negative ng/ml (<200)
[2021-12-13 19:57] LABS: Cannabinoid Screen,Urine Negative ng/ml (<50)
[2021-12-13 19:58] LABS: Cocaine Screen,Urine Negative ng/ml (<300); Methadone Screen,Urine Negative ng/ml (<300)
[2021-12-13 19:59] LABS: Opiate Screen,Urine Positive ng/ml (<300)
[2021-12-13 20:00] LABS: Phencyclidine Screen,Urine Negative ng/ml (<25)
== END ==
PROVIDERS: PCP Emergency Medicine; Visit Provider Emergency Medicine
DX: M79.7 Fibromyalgia (principal)
CPT/HCPCS: 80305

== ENCOUNTER → 2022-02-07 06:22 | Outpatient (CLI) | payer MEDICAID, SELFPAY ==
[2022-02-07 18:10] LABS: Benzodiazepines Screen,Urine Negative ng/ml (<200)
[2022-02-07 18:11] LABS: Amphetamine/Metha Screen,Urine Negative ng/ml (<1000); Barbiturates Screen,Urine Negative ng/ml (<200)
[2022-02-07 18:12] LABS: Cannabinoid Screen,Urine Negative ng/ml (<50)
[2022-02-07 18:13] LABS: Cocaine Screen,Urine Negative ng/ml (<300); Methadone Screen,Urine Negative ng/ml (<300)
[2022-02-07 18:14] LABS: Opiate Screen,Urine Positive ng/ml (<300); Phencyclidine Screen,Urine Negative ng/ml (<25)
== END ==
PROVIDERS: PCP Emergency Medicine; Visit Provider Emergency Medicine
DX: M79.7 Fibromyalgia (principal)
CPT/HCPCS: 80305

== ENCOUNTER 2022-02-20 18:33 | Emergency (ER) | payer MEDICAID, SELFPAY ==
[2022-02-20 18:50] VITALS: BP 116/83; PULSE 82; RESP 18; TEMP 37.1; O2SAT 95; BMI 37.5
--- NOTE | 2022-02-20 19:17 | EXP.UTC ---
Discharge Plan Disposition Patient Disposition: Home, Self-Care Condition: Good Prescriptions Prescriptions: New doxycycline monohydrate 100 mg tablet 100 mg PO BID 10 Days Qty: 20 0RF No Action mupirocin 2 % ointment 1 applic TOPICAL TID Qty: 22 0RF gabapentin 800 mg tablet 800 mg PO TID Qty: 90 1RF hydrocodone-acetaminophen 5-325 mg tablet 1 tab PO TID Qty: 90 0RF fluticasone propionate 50 mcg/actuation spray,suspension 1 spray INTRANASAL DAILY PRN Label Comments: PLACE 2 SPRAYS INTO EACH NOSTRIL ONCE A DAY amitriptyline 50 mg tablet See Rx Instructions .ROUTE .COMPLEX Qty: 60 5RF Dose Instruction: TAKE 2 TABLETS BY MOUTH EVERY DAY Rx Instructions: TAKE 2 TABLETS BY MOUTH EVERY DAY Ubrelvy 100 mg tablet 100 mg PO ONCE PRN (Reason: Migraine) Qty: 10 5RF Rx Instructions: Take 1 tablet at onset of headache. May repeat after 2 hours if symptoms persist. Max dose 2 tablets in 24 hours or 4 Tablets/Week cholecalciferol (vitamin D3) 25 mcg (1,000 unit) capsule 1,000 unit PO DAILY Qty: 90 1RF omeprazole 40 mg capsule,delayed release(DR/EC) See Rx Instructions .ROUTE .COMPLEX Qty: 90 3RF Dose Instruction: TAKE 1 CAPSULE BY MOUTH EVERY DAY Rx Instructions: TAKE 1 CAPSULE BY MOUTH EVERY DAY cetirizine 10 mg tablet See Rx Instructions .ROUTE .COMPLEX Qty: 30 8RF Dose Instruction: TAKE 1 TABLET BY MOUTH EVERY DAY Rx Instructions: TAKE 1 TABLET BY MOUTH EVERY DAY cyclobenzaprine 10 mg tablet See Rx Instructions .ROUTE .COMPLEX Qty: 30 2RF Dose Instruction: TAKE 1 TABLET BY MOUTH EVERYDAY AT BEDTIME Rx Instructions: TAKE 1 TABLET BY MOUTH EVERYDAY AT BEDTIME ergocalciferol (vitamin D2) 1,250 mcg (50,000 unit) capsule See Rx Instructions .ROUTE .COMPLEX Qty: 4 2RF Dose Instruction: TAKE 1 CAPSULE BY MOUTH EACH WEEK Rx Instructions: TAKE 1 CAPSULE BY MOUTH EACH WEEK Emgality Pen 120 mg/mL pen injector 120 mg SQ QMONTH Qty: 1 5RF diclofenac submicronized [Zorvolex] 35 mg capsule See Rx Instructions .ROUTE .COMPLEX Qty: 30 0RF Dose Instruction: TAKE 1 CAPSULE BY MOUTH EVERY DAY Rx Instructions: TAKE 1 CAPSULE BY MOUTH EVERY DAY Referrals Follow up/Referrals: Jhonny Bass MD [Primary Care Provider] - See instructions Activity Restrictions/Add. Instructions Additional Instructions/Restrictions: Take antibiotics as prescribed FOllow up with your Eye Doctor if no improvement or any worsening of symptoms Follow up with your Family Doctor if no improvement or worsening of symptoms Warm Compresses may help with pain and swelling Return if needed Straight to ER if any vision changes or trouble seeing or worsening of swelling Discharge ED Provider: Brenda Carpenter [facility] [place] HPI General Stated complaint: Left eye red Mode of Arrival: Ambulatory Source of Information: Patient Limitations: No Limitations Time Seen by Provider: 02/20/22 19:20 Description of Symptoms (Recalled from Triage Doc. by RN): PATIENT C/O PAIN, SWELLING, AND REDNESS TO LEFT EYE LID X 3 DAYS HEENT Symptoms (Recalled from RN notes): Yes Resp Symptoms (Recalled from RN notes): No Skin Symptoms (Recalled from RN notes): No MS Symptoms (Recalled from RN notes): No Functional Status (Recalled from RN notes): WNL History of Present Illness Provider Complaint: Patient states that she has been having pain and swelling to left upper eyelid for about 3 days she thought was a stye but has not improved States that today her eyelid looks more red and starting to get some redness under her eye States that eyelid is tender to the touch Related Data Home Medications Medication Instructions Recorded Confirmed fluticasone propionate 50 1 spray intranasal DAILY PRN 07/17/21 02/07/22 mcg/actuation nasal spray,suspension Previous Rx's Medication Instructions Recorded cholecalciferol (vitamin D3
[2022-02-20 19:19] VITALS: BP 116/83; PULSE 82; RESP 18; TEMP 37.1; O2SAT 95
== END 2022-02-20 19:40 | disposition home or self-care (01) ==
PROVIDERS: Emergency Provider Nurse Practitioner; PCP Emergency Medicine
DX: H00.014 Hordeolum externum left upper eyelid (principal)
CPT/HCPCS: 99212; G0463

== ENCOUNTER → 2022-04-09 14:20 | Outpatient (CLI) | payer MEDICAID, SELFPAY ==
[2022-04-09 18:03] LABS: Amphetamine/Metha Screen,Urine Negative ng/ml (<1000); Barbiturates Screen,Urine Negative ng/ml (<200); Benzodiazepines Screen,Urine Negative ng/ml (<200)
[2022-04-09 18:04] LABS: Cannabinoid Screen,Urine Negative ng/ml (<50); Cocaine Screen,Urine Negative ng/ml (<300)
[2022-04-09 18:05] LABS: Methadone Screen,Urine Negative ng/ml (<300)
[2022-04-09 18:06] LABS: Opiate Screen,Urine Positive ng/ml (<300); Phencyclidine Screen,Urine Negative ng/ml (<25)
== END ==
PROVIDERS: PCP Emergency Medicine; Visit Provider Emergency Medicine
DX: Z79.899 Other long term (current) drug therapy (principal)
CPT/HCPCS: 80305

== ENCOUNTER → 2022-05-16 14:27 | Outpatient (CLI) | payer MEDICAID, SELFPAY ==
--- NOTE | 2022-05-16 14:30 | US_ITS ---
PROCEDURE INFORMATION: Exam: US Left Breast, Complete Exam date and time: 05/16/2022 3:23 PM Age: 46 years old Clinical indication: Screening exam; No personal or family HX of malignancy TECHNIQUE: Imaging protocol: Complete ultrasound of all four quadrants of the Left breast and the retroareolar regions, including ultrasound of the axilla when performed. COMPARISON: MG MM DIG SCREENING MAMM BI W/CAD 10/23/2021 3:51 PM FINDINGS: Breast: Sonographic images of the left breast including the retroareolar region, all 4 quadrants and the axilla do not demonstrate any solid or cystic masses. No architectural distortion or acoustical shadowing. No skin thickening or axillary adenopathy. IMPRESSION: No sonographic evidence of malignancy. Annual mammographic screening is recommended unless otherwise clinically indicated. ASSESSMENT: BI-RADS Category 1: Negative
--- NOTE | 2022-05-16 14:30 | US_ITS ---
PROCEDURE INFORMATION: Exam: US Right Breast, Complete Exam date and time: 05/16/2022 2:53 PM Age: 46 years old Clinical indication: Right breast pain TECHNIQUE: Imaging protocol: Complete ultrasound of all four quadrants of the Right breast and the retroareolar regions, including ultrasound of the axilla when performed. COMPARISON: MG MM DIG SCREENING MAMM BI W/CAD 10/23/2021 3:51 PM FINDINGS: Breast: Sonographic images of the right breast including the retroareolar region, all 4 quadrants and the axilla demonstrates a questionable island of fibroglandular parenchyma versus a true solid lesion in the 5 o'clock axis 4 cm from the nipple where the patient reports pain. The area of interest measures 0.4 x 0.4 x 0.4 cm in dimension. No architectural distortion or acoustical shadowing. No skin thickening or axillary adenopathy. IMPRESSION: Probably benign subcentimeter mass in the right 5 o'clock axis. A six-month follow-up targeted right breast ultrasound is recommended to ensure stability over time ASSESSMENT: BI-RADS Category 3: Probably benign
== END ==
PROVIDERS: PCP Emergency Medicine; Visit Provider Nurse Practitioner Obstetrics & Gynecology
DX: N64.4 Mastodynia (principal); N60.19 Diffuse cystic mastopathy of unspecified breast
CPT/HCPCS: 76641

== ENCOUNTER → 2022-06-06 14:00 | Outpatient (CLI) | payer MEDICAID, SELFPAY ==
[2022-06-06 17:37] LABS: Amphetamine/Metha Screen,Urine Negative ng/ml (<1000)
[2022-06-06 17:38] LABS: Barbiturates Screen,Urine Negative ng/ml (<200); Benzodiazepines Screen,Urine Negative ng/ml (<200)
[2022-06-06 17:39] LABS: Cannabinoid Screen,Urine Negative ng/ml (<50); Cocaine Screen,Urine Negative ng/ml (<300)
[2022-06-06 17:40] LABS: Methadone Screen,Urine Negative ng/ml (<300)
[2022-06-06 17:41] LABS: Opiate Screen,Urine Positive ng/ml (<300)
[2022-06-06 17:42] LABS: Phencyclidine Screen,Urine Negative ng/ml (<25)
== END ==
PROVIDERS: PCP Emergency Medicine; Visit Provider Emergency Medicine
DX: M79.7 Fibromyalgia (principal)
CPT/HCPCS: 80305

== ENCOUNTER → 2022-09-25 23:16 | Outpatient (CLI) | payer MEDICAID, SELFPAY ==
[2022-09-25 18:51] LABS: Amphetamine/Metha Screen,Urine Negative ng/ml (<1000)
[2022-09-25 18:52] LABS: Barbiturates Screen,Urine Negative ng/ml (<200); Benzodiazepines Screen,Urine Negative ng/ml (<200)
[2022-09-25 18:53] LABS: Cannabinoid Screen,Urine Negative ng/ml (<50)
[2022-09-25 18:54] LABS: Cocaine Screen,Urine Negative ng/ml (<300); Methadone Screen,Urine Negative ng/ml (<300)
[2022-09-25 18:55] LABS: Opiate Screen,Urine Positive ng/ml (<300)
[2022-09-25 18:56] LABS: Phencyclidine Screen,Urine Negative ng/ml (<25)
== END ==
PROVIDERS: PCP Emergency Medicine; Visit Provider Emergency Medicine
DX: Z79.899 Other long term (current) drug therapy (principal)
CPT/HCPCS: 80305

== ENCOUNTER → 2022-11-23 10:20 | Outpatient (CLI) | payer MEDICAID, SELFPAY ==
[2022-11-23 19:14] LABS: Amphetamine/Metha Screen,Urine Negative ng/ml (<1000)
[2022-11-23 19:17] LABS: Barbiturates Screen,Urine Negative ng/ml (<200); Benzodiazepines Screen,Urine Negative ng/ml (<200)
[2022-11-23 19:18] LABS: Cannabinoid Screen,Urine Negative ng/ml (<50)
[2022-11-23 19:19] LABS: Cocaine Screen,Urine Negative ng/ml (<300); Methadone Screen,Urine Negative ng/ml (<300)
[2022-11-23 19:20] LABS: Opiate Screen,Urine Positive ng/ml (<300)
[2022-11-23 19:21] LABS: Phencyclidine Screen,Urine Negative ng/ml (<25)
== END ==
PROVIDERS: PCP Emergency Medicine; Visit Provider Emergency Medicine
DX: Z79.899 Other long term (current) drug therapy (principal)
CPT/HCPCS: 80305

== ENCOUNTER → 2022-11-28 13:14 | Outpatient (CLI) | payer MEDICAID, SELFPAY ==
--- NOTE | 2022-11-28 13:15 | US_ITS ---
PROCEDURE INFORMATION: Exam: US Right Breast, Complete Exam date and time: 11/28/2022 1:39 PM Age: 46 years old Clinical indication: Short-term radiographic follow-up for subcentimeter right questionable breast mass seen on prior ultrasound dated 05/16/2022 TECHNIQUE: Imaging protocol: Complete ultrasound of all four quadrants of the right breast and the retroareolar regions, including ultrasound of the axilla when performed. COMPARISON: US BREAST RT COMPLETE 05/16/2022 2:53 PM FINDINGS: Breast: Sonographic images of the right breast including the retroareolar region, all 4 quadrants and the axilla do not demonstrate any solid or cystic masses. Previously noted 0.5 cm mass in the right 5 o'clock axis 4 cm from the nipple is not seen on the current examination. No architectural distortion or acoustical shadowing. No skin thickening or axillary adenopathy. IMPRESSION: No sonographic evidence of malignancy. Annual mammographic screening is recommended at the current time unless otherwise clinically indicated. ASSESSMENT: BI-RADS Category 1: Negative
== END ==
PROVIDERS: PCP Emergency Medicine; Visit Provider Nurse Practitioner Obstetrics & Gynecology
DX: R92.8 Other abnormal and inconclusive findings on diagnostic imaging of breast (principal); N63.10 Unspecified lump in the right breast, unspecified quadrant
CPT/HCPCS: 76641

== ENCOUNTER → 2023-01-21 13:30 | Outpatient (CLI) | payer MEDICAID, SELFPAY ==
[2023-01-21 19:12] LABS: Basophils % 0.4 % (0.1-2.0); Eosinophils # 0.1 K/mm3 (0.0-0.4); Eosinophils % 1.5 % (0.1-12.0); Hematocrit 44.1 % (37.0-47.0); Hemoglobin 14.3 g/dL (12.2-16.2); Lymphocytes # 2.6 K/mm3 (0.7-4.5); Lymphocytes % 39.1 % (10-50); Mean Corpuscular HGB Conc 32.5 g/dL (31.8-35.4); Mean Corpuscular Hemoglobin 29.1 pg (27.0-31.2); Mean Corpuscular Volume 89.7 fl (81-99); Mean Platelet Volume 9.5 fl (7.4-10.4); Monocytes # 0.3 K/mm3 (0.1-1.0); Neutrophils # 3.6 K/mm3 (1.8-7.8); Neutrophils % 54.9 % (37.0-80.0); Platelet Count 287 K/mm3 (142-424); Red Blood Count 4.92 M/mm3 (4.20-5.40); Red Cell Distribution Width 13.9 % (11.5-17.5); White Blood Count 6.6 K/mm3 (4.8-10.8)
[2023-01-21 20:15] LABS: Alanine Aminotransferase 20 U/L (12-78); Albumin/Globulin Ratio 1.4 (1.1-1.8); Anion Gap 13.3 mEq/L (5-15); Aspartate Amino Transferase 20 U/L (14-36); Bilirubin,Total 0.3 mg/dl (0.2-1.3); Blood Urea Nitrogen 15 mg/dl (7-17); Calcium 9.3 mg/dl (8.4-10.2); Carbon Dioxide 22 mmol/L (22.0-30.0); Chloride 109 mmol/L (98-107); Estimated Glomerular Filt Rate 90 ml/min (>60); GFR (African American) 109 ML/MIN (>60); Globulin 2.9 g/dL (1.3-3.2); Glucose 95 mg/dl (74-100); Potassium 4.3 mmoL/L (3.5-5.1); Sodium 140 mmol/L (136-145); Total Protein,Serum 6.9 g/dl (6.3-8.2); Triglycerides 87 mg/dl (30-150)
[2023-01-21 20:16] LABS: Alkaline Phosphatase 117 U/L (38-126); Chol/HDL Ratio 5.1 (1-3.5); Cholesterol 193 mg/dl (140-200); HDL Cholesterol 38 mg/dl (40-60); VLDL Cholesterol 17 mg/dL (0-40)
[2023-01-21 20:26] LABS: Direct LDL Cholesterol 130.76 mg/dL (100-129)
[2023-01-21 20:33] LABS: T4 (Thyroxine) 9.5 ug/dl (5.53-11.0)
[2023-01-21 20:34] LABS: 25-OH Vitamin D, Total 22.1 ng/mL (30-100)
[2023-01-21 20:45] LABS: Amphetamine/Metha Screen,Urine Negative ng/ml (<1000); Benzodiazepines Screen,Urine Negative ng/ml (<200)
[2023-01-21 20:46] LABS: Barbiturates Screen,Urine Negative ng/ml (<200)
[2023-01-21 20:47] LABS: Thyroid Stimulating Hormone 1.34 uIU/mL (0.465-4.68)
[2023-01-21 20:49] LABS: Opiate Screen,Urine Positive ng/ml (<300); Phencyclidine Screen,Urine Negative ng/ml (<25)
[2023-01-21 20:55] LABS: Methadone Screen,Urine Negative ng/ml (<300)
[2023-01-21 21:34] LABS: Cannabinoid Screen,Urine Negative ng/ml (<50); Cocaine Screen,Urine Negative ng/ml (<300)
== END ==
PROVIDERS: PCP Emergency Medicine; Visit Provider Emergency Medicine
DX: G89.29 Other chronic pain (principal); M54.9 Dorsalgia, unspecified; E66.9 Obesity, unspecified; Z68.37 Body mass index [BMI] 37.0-37.9, adult; Z79.899 Other long term (current) drug therapy
CPT/HCPCS: 80053; 80061; 80305; 82306; 84436; 84443; 85025

== ENCOUNTER → 2023-03-12 11:20 | Outpatient (CLI) | payer MEDICAID, SELFPAY ==
[2023-03-12 20:15] LABS: Amphetamine/Metha Screen,Urine Negative ng/ml (<1000)
[2023-03-12 20:16] LABS: Barbiturates Screen,Urine Negative ng/ml (<200); Benzodiazepines Screen,Urine Negative ng/ml (<200)
[2023-03-12 20:17] LABS: Cannabinoid Screen,Urine Negative ng/ml (<50)
[2023-03-12 20:18] LABS: Cocaine Screen,Urine Negative ng/ml (<300); Methadone Screen,Urine Negative ng/ml (<300)
[2023-03-12 20:19] LABS: Opiate Screen,Urine Positive ng/ml (<300)
[2023-03-12 20:20] LABS: Phencyclidine Screen,Urine Negative ng/ml (<25)
== END ==
PROVIDERS: PCP Emergency Medicine; Visit Provider Emergency Medicine
DX: M79.7 Fibromyalgia (principal)
CPT/HCPCS: 80305

== ENCOUNTER 2023-07-02 18:04 | Outpatient (CLI) | payer MEDICAID, SELFPAY ==
[2023-07-02 21:12] LABS: Barbiturates Screen,Urine Negative ng/ml (<200); Benzodiazepines Screen,Urine Negative ng/ml (<200); Cannabinoid Screen,Urine Negative ng/ml (<50); Cocaine Screen,Urine Negative ng/ml (<300); Methadone Screen,Urine Negative ng/ml (<300); Opiate Screen,Urine Positive ng/ml (<300); Phencyclidine Screen,Urine Negative ng/ml (<25)
[2023-07-03 15:14] LABS: Amphetamine/Metha Screen,Urine Negative ng/ml (<1000)
[2023-07-10 10:34] LABS: Gabapentin,Urine Negative (.)
== END 2023-07-02 23:59 ==
LOC: LAB.DROPOF 18:05
PROVIDERS: PCP Nurse Practitioner Family; Visit Provider Nurse Practitioner Family
DX: M79.7 Fibromyalgia (principal)
CPT/HCPCS: 80307

== ENCOUNTER 2023-08-27 14:51 | Outpatient (CLI) | payer MEDICAID, SELFPAY ==
--- NOTE | 2023-08-27 14:55 | XR_ITS ---
FINAL REPORT CLINICAL HISTORY: Mid-Back pain FINDINGS: THORACIC SPINE Three views demonstrate no acute fracture. The disc spaces are well preserved. There is mild leftward curvature. The alignment is otherwise normal. IMPRESSION: No acute process. Reviewed, Interpreted and Dictated by Efrem Melendez III, MD Transcribed by Samantha Mcdonnell Authenticated and [facility]
== END 2023-08-27 23:59 ==
LOC: RAD 14:52
PROVIDERS: PCP Nurse Practitioner Family; Visit Provider Nurse Practitioner Family
DX: M54.6 Pain in thoracic spine (principal)
CPT/HCPCS: 72072

== ENCOUNTER 2023-11-07 12:04 | Outpatient (CLI) | payer MEDICAID, SELFPAY ==
--- NOTE | 2023-11-07 12:06 | XR_ITS ---
FINAL REPORT CLINICAL HISTORY: pain in right ankle/foot FINDINGS: RIGHT ANKLE 3 views of the right ankle were obtained. There is no acute fracture or dislocation. The mortise is intact. Visualized joint spaces are normally aligned. Soft tissues are unremarkable. IMPRESSION: No acute bony abnormality. Reviewed, Interpreted and Dictated by Efrem Melendez III, MD Transcribed by Susan Canchola Authenticated and [facility]
--- NOTE | 2023-11-07 12:06 | XR_ITS ---
FINAL REPORT CLINICAL HISTORY: RT ankle/foot pain FINDINGS: RIGHT FOOT 3 views of the right foot were obtained. There is no acute fracture or dislocation. There are mild degenerative changes at the first metatarsophalangeal joint. Soft tissues are unremarkable. IMPRESSION: No acute bony abnormality. Reviewed, Interpreted and Dictated by Efrem Melendez III, MD Transcribed by Susan Canchola Authenticated and [facility]
== END 2023-11-07 23:59 | disposition home or self-care (01) ==
LOC: RAD 12:05
PROVIDERS: PCP Nurse Practitioner Family; Visit Provider Nurse Practitioner Family
DX: M25.571 Pain in right ankle and joints of right foot (principal)
CPT/HCPCS: 73610; 73630

== ENCOUNTER 2024-01-28 14:02 | Outpatient (CLI) | payer MEDICAID, SELFPAY ==
[2024-01-28 18:02] LABS: Basophils % 0.4 % (0.1-2.0); Eosinophils # 0.1 K/mm3 (0.0-0.4); Eosinophils % 1.3 % (0.1-12.0); Hematocrit 41.3 % (37.0-47.0); Hemoglobin 13.9 g/dL (12.2-16.2); Lymphocytes # 2.8 K/mm3 (0.7-4.5); Lymphocytes % 32.4 % (10-50); Mean Corpuscular HGB Conc 33.7 g/dL (31.8-35.4); Mean Corpuscular Hemoglobin 30.5 pg (27.0-31.2); Mean Corpuscular Volume 90.5 fl (81-99); Mean Platelet Volume 9.1 fl (7.4-10.4); Monocytes # 0.4 K/mm3 (0.1-1.0); Monocytes % 4.3 % (1.7-9.3); Neutrophils # 5.3 K/mm3 (1.8-7.8); Neutrophils % 61.7 % (37.0-80.0); Platelet Count 285 K/mm3 (142-424); Red Blood Count 4.56 M/mm3 (4.20-5.40); Red Cell Distribution Width 14.3 % (11.5-17.5); White Blood Count 8.7 K/mm3 (4.8-10.8)
[2024-01-28 18:49] LABS: Alanine Aminotransferase 18 U/L (12-78); Albumin Level 3.9 g/dl (3.5-5.0); Albumin/Globulin Ratio 1.3 (1.1-1.8); Alkaline Phosphatase 113 U/L (38-126); Anion Gap 12.2 mEq/L (5-15); Aspartate Amino Transferase 19 U/L (14-36); Bilirubin,Total 0.6 mg/dl (0.2-1.3); Blood Urea Nitrogen 13 mg/dl (7-17); Calcium 9.6 mg/dl (8.4-10.2); Carbon Dioxide 24 mmol/L (22.0-30.0); Chloride 108 mmol/L (98-107); Chol/HDL Ratio 4.4 (1-3.5); Cholesterol 191 mg/dl (140-200); Estimated Glomerular Filt Rate 90 ml/min (>60); GFR (African American) 109 ML/MIN (>60); Globulin 3.1 g/dL (1.3-3.2); Glucose 79 mg/dl (74-100); HDL Cholesterol 43 mg/dl (40-60); Potassium 4.2 mmoL/L (3.5-5.1); Sodium 140 mmol/L (136-145); Triglycerides 107 mg/dl (30-150); VLDL Cholesterol 21 mg/dL (0-40)
[2024-01-28 19:07] LABS: Hemoglobin A1C 5.7 % (4.0-6.0)
[2024-01-28 19:20] LABS: Thyroid Stimulating Hormone 2.95 uIU/mL (0.465-4.68)
== END 2024-01-28 23:59 | disposition home or self-care (01) ==
LOC: LAB.DROPOF 01-29 14:04
PROVIDERS: PCP Nurse Practitioner Family; Visit Provider Nurse Practitioner Family
DX: M79.7 Fibromyalgia (principal); Z79.899 Other long term (current) drug therapy
CPT/HCPCS: 80050; 80053; 80061; 82306; 83036; 84443; 85025

== ENCOUNTER → 2024-03-24 06:24 | Outpatient (CLI) | payer MEDICAID, SELFPAY | LOC: SL 03-27 06:25 | PROVIDERS: PCP Nurse Practitioner Family; Visit Provider Nurse Practitioner Family | DX: G47.33 Obstructive sleep apnea (adult) (pediatric) (principal); G47.36 Sleep related hypoventilation in conditions classified elsewhere | CPT/HCPCS: G0399 ==

== ENCOUNTER 2024-04-29 13:47 | Outpatient (CLI) | payer MEDICAID, SELFPAY ==
--- NOTE | 2024-04-29 13:50 | XR_ITS ---
FINAL REPORT CLINICAL HISTORY: Left wrist pain COMPARISON: None FINDINGS: LEFT WRIST Three views demonstrate no acute fracture or dislocation. There is mild degenerative change of the radial aspect of the wrist. The visualized joint spaces are normally aligned. The soft tissues are unremarkable. IMPRESSION: Mild degenerative change without acute bony abnormality. Reviewed, Interpreted and Dictated by Efrem Melendez III, MD Transcribed by Denita Crocker Authenticated and . [facility]
== END 2024-04-29 23:59 | disposition home or self-care (01) ==
LOC: RAD 13:48
PROVIDERS: PCP Nurse Practitioner Family; Visit Provider Physician Assistant
DX: M25.532 Pain in left wrist (principal)
CPT/HCPCS: 73110

== ENCOUNTER 2024-05-04 15:49 | Emergency (ER) | payer SELFPAY ==
[2024-05-04 16:16] VITALS: BP 98/54; PULSE 90; RESP 16; TEMP 36.8; O2SAT 99; BMI 35.9
--- NOTE | 2024-05-04 16:16 | XR_ITS ---
PROCEDURE INFORMATION: Exam: XR Lumbosacral Spine Exam date and time: 05/04/2024 4:14 PM Age: 48 years old Clinical indication: Low back pain TECHNIQUE: Imaging protocol: Radiologic exam of the lumbosacral spine. Views: 2 or 3 views. Total images: 4 COMPARISON: No relevant prior studies available. FINDINGS: Bones/joints: Normal. No acute fracture. Normal alignment. Soft tissues: Unremarkable. IMPRESSION: No acute findings.
--- NOTE | 2024-05-04 16:39 | ED_ITS ---
Discharge Plan Disposition Patient Disposition: Home, Self-Care Condition: Good Prescriptions Prescriptions: New methocarbamol 500 mg tablet 500 mg PO TID PRN (Reason: muscle spasm) Qty: 12 0RF lidocaine 4 % adhesive patch,medicated 1 patch topical DAILY PRN (Reason: pain) Qty: 10 0RF Rx Instructions: place on area for 12 hours then remove for 12 hours No Action triamcinolone acetonide 0.1 % ointment 1 applic topical BID Qty: 30 1RF Ubrelvy 100 mg tablet See Rx Instructions .ROUTE .COMPLEX Qty: 10 11RF Dose Instruction: TAKE 1 TABLET AT ONSET OF HEADACHE. MAY REPEAT AFTER 2 HOURS. MAX 2 TABS IN 24 HRS OR 4 TABLETS/WEEK Rx Instructions: TAKE 1 TABLET AT ONSET OF HEADACHE. MAY REPEAT AFTER 2 HOURS. MAX 2 TABS IN 24 HRS OR 4 TABLETS/WEEK omeprazole 40 mg capsule,delayed release(DR/EC) See Rx Instructions .ROUTE .COMPLEX Qty: 90 3RF Dose Instruction: TAKE 1 CAPSULE BY MOUTH EVERY DAY Rx Instructions: TAKE 1 CAPSULE BY MOUTH EVERY DAY diclofenac sodium [Voltaren Arthritis Pain] 1 % gel 4 g topical QID PRN (Reason: pain) 30 Days Qty: 100 2RF Rx Instructions: apply to single knee, ankle, foot; for foot includes sole/toes/top of foot diclofenac submicronized [Zorvolex] 35 mg capsule 35 mg PO ONCE Qty: 30 3RF cholecalciferol (vitamin D3) 1,250 mcg (50,000 unit) capsule 1,250 mcg PO WEEKLY Qty: 5 3RF cholecalciferol (vitamin D3) 50 mcg (2,000 unit) capsule 50 mcg PO DAILY Qty: 30 3RF gabapentin 300 mg capsule 300 mg PO TID Qty: 90 2RF hydrocodone-acetaminophen 5-325 mg tablet 1 tab PO TID PRN (Reason: pain) Qty: 75 0RF Rx Instructions: Monthly cetirizine 10 mg tablet See Rx Instructions .ROUTE .COMPLEX Qty: 30 8RF Dose Instruction: TAKE 1 TABLET BY MOUTH EVERY DAY Rx Instructions: TAKE 1 TABLET BY MOUTH EVERY DAY Emgality Pen 120 mg/mL pen injector 120 mg SQ QMONTH Qty: 1 11RF Referrals Follow up/Referrals: Demond Mcclain APRN [Primary Care Provider] - See instructions Activity Restrictions/Add. Instructions Additional Instructions/Restrictions: *Ibuprofen cassia 6 hours with meal as needed for pain/inflammation Use lidocaine patches as prescribed *Not additional anti-inflammatory like motrin, aleve, advil with the above amount of ibuprofen. You can still take Tylenol every 4 hours as needed if you need something else for pain *Ice 20 minutes every 2 hours for the first 48 hours after the initial injury followed by moist heat every 20 minutes 3-4 times a day to affected area *Muscle relaxer every 8 hours as needed for muscle spasms but remember, it WILL cause drowsiness You cannot take it and drive, operate machinery or care for small children. *Keep this area active, no movement leads to more stiffness, However take it easy and avoid heavy lifting pushing or pulling *Follow up with you family doctor if no improvement for further treatment Clinical Impressions Clinical Impression: Low back pain Instructions Patient Instructions: Low Back Pain, Lidocaine Transdermal Patch Print Language Print Language: Lao Discharge ED Provider: Brenda Carpenter [facility] General Stated complaint: AO 05/04 900 lower back pain Mode of Arrival: Ambulatory Source of Information: Patient Limitations: No Limitations Time Seen by Provider: 05/04/24 16:39 Description of Symptoms (Recalled from Triage Doc. by RN): Reports lower back pain. States she bent over to pick something up and heard a pop. HEENT Symptoms (Recalled from RN notes): No Resp Symptoms (Recalled from RN notes): No Skin Symptoms (Recalled from RN notes): No MS Symptoms (Recalled from RN notes): Yes Functional Status (Recalled from RN notes): wnl History of Present Illness Provider Complaint: Patient states that she is having pain in her lower back area that with certain movements feels like it goes into her right hip area States that she was bending over to pick something up and felt a pop and pain started after that and feeling like she was having spasms so she came in to get checked Denies loss of control of bowel or bladder Related Data Previous Rx's ?Medication ?Instructions ?Recorded omeprazole 40 mg capsule,delayed See Rx Instructions .Route 10/30/23 release .COMPLEX #90 caps diclofenac sodium 1 % topical gel 4 g topical QID PRN pain 30 days 12/02/23 (Voltaren Arthritis Pain) #100 grams triamcinolone acetonide 0.1 % 1 applic topical BID #30 grams 01/28/24 topical ointment cholecalciferol (vitamin D3) 1,250 1,250 mcg PO WEEKLY #5 caps 02/26/24 mcg (50,000 unit) capsule cholecalciferol (vitamin D3) 50 50 mcg PO DAILY #30 caps 02/26/24 mcg (2,000 unit) capsule diclofenac submicronized 35 mg 35 mg PO ONCE #30 caps 02/26/24 capsule (Zorvolex) ubrogepant 100 mg tablet (Ubrelvy) See Rx Instructions .Route 03/03/24 .COMPLEX #10 tabs cetirizine 10 mg tablet See Rx Instructions .Route 03/04/24 .COMPLEX #30 tabs galcanezumab-gnlm 120 mg/mL 120 mg SQ QMONTH chronic 03/11/24 subcutaneous pen injector intractable migraine w/o aura #1 mL (Emgality Pen) gabapentin 300 mg capsule 300 mg PO TID #90 caps 04/22/24 hydrocodone 5 mg-acetaminophen 325 1 tab PO TID PRN pain #75 tabs 04/22/24 mg tablet lidocaine 4 % topical patch 1 patch topical DAILY PRN pain #10 05/04/24 ea methocarbamol 500 mg tablet 500 mg PO TID PRN muscle spasm #12 05/04/24 tabs Allergies Allergy/AdvReac Type Severity Reaction Status Date / Time cephalexin [CEPHALEXIN] Allergy Unknown BREATHING Verified 04/29/24 14:15 DIFFICULTY Worker's Comp Is this a Worker's Comp case?: No [facility] Disclaimer: The information contained in this section may have been updated after the patient was seen, as this information can be updated by other users. Medical History Colon cancer screening Cervical cancer screening Breast cancer screening Chronic back pain Dense breasts Family history of breast cancer History of gastroesophageal reflux (GERD) Migraine Excellent response to Emgality, Ubrelvy Fibromyalgia Surgical History History of tubal ligation History of tonsillectomy History of hysterectomy Family History Other Cancer Social History Smoking Status: Current every day smoker tobacco type: cigarettes packs per day: 1 alcohol intake: never counseling provided: none substance use type: denies use current occupational status: other Travel in the last 8 weeks: None household members: spouse, children and other housing: house 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 Obtained: Yes All systems reviewed & no additional complaints except as documented and Yes Systems reviewed as appropriate & no additional complaints except as documented Constitutional Constitutional: Reports system reviewed and no additional complaints, except as documented, Reports as per HPI, Denies body ache, Denies chills and Denies fever(s) Eyes Eyes: Reports system reviewed and no additional complaints, except as documented and Reports as per HPI ENT Ears, Nose, Mouth, and Throat: Reports system reviewed and no additional complaints, except as documented and Reports as per HPI Cardiovascular Cardiovascular: Reports system reviewed and no additional complaints, except as documented and Reports as per HPI Respiratory Respiratory: Reports system reviewed and no additional complaints, except as documented, Reports as per HPI, Denies shortness of breath, Denies chest congestion and Denies cough Gastrointestinal Gastrointestingal: Reports system reviewed and no additional complaints, except as documented and as per HPI; Denies abdominal pain Genitourinary Female Genitourinary: Reports system reviewed and no additional complaints, except as documented, Reports as per HPI, Denies dysuria, Denies urinary frequency and Denies urinary urgency Musculoskeletal Musculoskeletal: Reports system reviewed and no additional complaints, except as documented, Reports as per HPI and Reports back pain Physical Exam General General appearance: alert and in no apparent distress ENT ENT exam: Present mucous membranes moist Respiratory Respiratory exam: Present normal lung sounds bilaterally; Absent respiratory distress or wheezes Cardiovascular Cardiovascular exam: Present regular rate, normal rhythm and normal heart sounds Abdominal Exam Abdominal exam: Present soft and normal bowel sounds; Absent distention or tenderness Back Exam Back exam: Present tenderness and muscle spasm Back 1 view image: 2 1. reports feeling of spasms, tightness and pain worse with movement and walking denies numbness or tingling in extremities denies urinary symptoms, denies loss of control of bowel or bladder Neurological Exam Neurological exam: Present alert, oriented X3 and normal gait Medical Decision Making Medical Records Screening: Per USPSTF and CDC recommendations, given the prevalence of disease in our region, it is our hospital?s policy to screen for HIV and viral Hepatitis for all patients aged 18 and over and those with ongoing risk factors. Stefan Inquiry Pt receiving controlled substance: No Stefan was queried for this patient: No Vital Signs: 05/04/24 16:16 Temperature 98.2 F Temperature Source Oral Pulse Rate [Radial] 90 Respiratory Rate 16 Blood Pressure [Right Arm] 98/54 L Blood Pressure Mean [Right Arm] 68 Blood Pressure Source [Right Arm] Automatic Cuff Blood Pressure Position [Right Arm] Sitting 02 Sat by Pulse Oximetry 99 Oxygen Delivery Method Room Air Orders (Tests/Meds): ORDERS Category Date Time Status Lumbar spine XR 2-3 views [XR lumbar spine 2-3V] Stat Exams 05/04/24 16:16 Taken Radiology Data #1: Image(s): L-Spine Image Reviewed: Yes I have reviewed radiologist's interpretation IMPRESSION: No acute findings. Medical Decision Narrative: Discussed Toradol shot for pain and she declined doesnt like shots
[2024-05-04 17:36] VITALS: BP 98/54; PULSE 90; RESP 16; TEMP 36.8; O2SAT 99
== END 2024-05-04 17:37 | disposition home or self-care (01) ==
PROVIDERS: Emergency Provider Nurse Practitioner; PCP Nurse Practitioner Family
DX: M54.50 Low back pain, unspecified (principal); M62.830 Muscle spasm of back
CPT/HCPCS: 72100; 99212; G0381

== ENCOUNTER 2024-06-23 11:45 | Outpatient (CLI) | payer MEDICAID, SELFPAY ==
[2024-06-23 18:59] LABS: Coronavirus 19, PCR Not Detected (NotDetected); Human Rhinovirus Not Detected (NotDetected); Influenza B, PCR Not Detected (NotDetected); Respiratory Syncytial Virus Not Detected (NotDetected)
[2024-06-23 22:59] LABS: Influenza A, PCR Detected (NotDetected)
== END 2024-06-23 23:59 | disposition home or self-care (01) ==
LOC: LAB.DROPOF 06-25 13:12
PROVIDERS: PCP Nurse Practitioner Family; Visit Provider Nurse Practitioner Family
DX: R05.9 Cough, unspecified (principal); J09.X9 Influenza due to identified novel influenza A virus with other manifestations; F17.210 Nicotine dependence, cigarettes, uncomplicated
CPT/HCPCS: 87631

== ENCOUNTER 2025-03-09 10:35 | Outpatient (CLI) | payer MEDICAID, SELFPAY ==
--- NOTE | 2025-03-09 10:39 | XR_ITS ---
FINAL REPORT CLINICAL HISTORY: evaluate right ankle pain COMPARISON: None FINDINGS: RIGHT ANKLE Three views show no evidence of acute displaced fracture or dislocation of the visualized bony architecture. The joint spaces appear normal. IMPRESSION: Unremarkable exam. Reviewed, Interpreted and Dictated by Nirmala Meade MD Transcribed by Annamaria Sharma Authenticated and [facility]
--- OUTSIDE RECORDS SUMMARY | 2025-03-09 11:03 | XMS_ITS | Clinical Summary ---
[facility] Organization [facility] Address [address] [place] [address] Care Team Providers Care Rn Infusion Name Role Phone Nasrin Bergman MD Primary Care Provider [phone] Allergies Active Allergy Reactions Criticality Noted Date Comments Cephalosporins Shortness Of Breath High 02/27/2018 Medications amitriptyline (ELAVIL) 10 MG tablet Take 20 mg by mouth Daily. 0 08/28/2018 Active buPROPion (WELLBUTRIN) 75 MG tablet Take 75 mg by mouth Daily. 2 08/25/2018 Active ZORVOLEX 35 MG capsule Take 1 capsule by mouth Daily. 0 08/22/2018 Active gabapentin (NEURONTIN) 800 MG tablet Take 800 mg by mouth 3 (Three) Times a Day. 2 08/29/2018 Active omeprazole (priLOSEC) 40 MG capsule Take 40 mg by mouth Daily. 2 08/17/2018 Active cetirizine (zyrTEC) 10 MG tablet Take 10 mg by mouth Daily. 0 08/28/2018 Active Active Problems No known active problems Immunizations Immunization Administration Dates Next Due Tdap 07/12/2024 Social History Tobacco Use Types Packs/Day Years Used Date Smoking Tobacco: Every Day Cigarettes 1 20 Abuse Screen Answer Date Recorded Feels Unsafe at Home or Work/School no 07/12/2024 Feels Threatened by Someone no 06/24 Does Anyone Try to Keep You From Having Contact with Others or Doing Things Outside Your Home? no 07/12/2024 Physical Signs of Abuse Present no 07/12/2024 Comments No Sex and Gender Information Value Date Recorded Sex Assigned at Not on file Legal Sex Female 11:49 AM EDT Gender Identity Not on file Sexual Orientation Not on file Last Filed Vital Signs Vital Sign Reading Time Taken Comments Blood Pressure 125/56 07/12/2024 12:00 PM EST Pulse 82 07/12/2024 12:45 PM EST Temperature 36.7 C (98 F) 07/12/2024 10:47 AM EST Respiratory Rate 16 07/12/2024 10:47 AM EST Oxygen Saturation 100% 07/12/2024 12:45 PM EST Inhaled Oxygen Concentration - - Weight 121 kg (266 lb) 07/12/2024 10:46 AM EST Height 182.9 cm (6') 07/12/2024 10:46 AM EST Body Mass Index 36.08 07/12/2024 10:46 AM EST Plan of Treatment Health Maintenance Due Date Last Done Comments Annual Gynecologic Pelvic an d Breast Exam 1977 MAMMOGRAM 2017 ANNUAL PHYSICAL 02/27/2018 HEPATITIS C SCREENING 02/27/2018 COLOGUARD 2022 COLON CANCER SCREENING 5 YEA R SIGMOIDOSCOPY 2022 COLONOSCOPY 2022 [address] CANCER SCREENING [address]22 CT COLONOGRAPHY 2022 FECAL OCCULT BLOOD TEST 2022 FIT Testing (1 year) 2022 COVID-19 Vaccine (3 - 2024-2 6 season) 2025 01/10/2021, 12/19/2020 INFLUENZA VACCINE 03/24/2025 03/21/2020, 07/15/2019, 03/06/2018 TDAP/TD VACCINES (2 - Td or Tdap) 07/12/2034 07/12/2024 Pneumococcal Vaccine 0-49 Aged Out No longer eligible based on patient's age to complete this topic Insurance [employer] Care Teams Rn Infusion Relationship Specialty Start Date End Date Nasrin Bergman MD PCP - General Family Medicine 02/27/18
== END 2025-03-09 23:59 | disposition home or self-care (01) ==
LOC: RAD 10:36
PROVIDERS: PCP Nurse Practitioner Family; Visit Provider Podiatrist
DX: M25.571 Pain in right ankle and joints of right foot (principal); M25.371 Other instability, right ankle
CPT/HCPCS: 73610

== ENCOUNTER 2025-03-15 12:43 | Day surgery (SDC) | payer MEDICAID, SELFPAY ==
[2025-03-09 12:36] VITALS: BMI 37.1
--- NOTE | 2025-03-12 18:00 | P.HP_ITS ---
History of Present Illness *Admission Date: 03/15/25 *Reason for visit:: Positive Cologuard *History of present illness: Mrs. Caraballo is a 49-year-old female who is here for initial screening colonoscopy secondary to a positive Cologuard test in April 2024. The examination is deemed medically necessary for screening colonoscopy. The patient has been seen, interviewed and examined prior to the procedure by both myself and the anesthesia provider. [facility] Disclaimer: The information contained in this section may have been updated after the patient was seen, as this information can be updated by other users. Medical History Chronic pain Positive colorectal cancer screening using Cologuard test Colon cancer screening Cervical cancer screening Breast cancer screening Chronic back pain Dense breasts Family history of breast cancer History of gastroesophageal reflux (GERD) Fibromyalgia Surgical History History of tubal ligation History of tonsillectomy History of hysterectomy Family History Other Cancer Social History (Updated 03/15/25 @ 13:00 by Dominga Duarte RN) Smoking Status: Current every day smoker tobacco type: cigarettes packs per day: 1 alcohol intake: never counseling provided: none substance use type: denies use current occupational status: employed Travel in the last 8 weeks?: None household members: spouse, children and other housing: house 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: Yes Have you lived/traveled outside US in past 30 days?: No Contact w/someone who lives/traveled outside US past 30 days?: No Exposure to someone with infectious disease in past 14 days?: No Do you have a fever (greater than 100.4 F or 38 C)?: No Have you tested positive for COVID-19?: No Exposed to someone with COVID-19 in past 14 days?: No Do you have a sore throat?: No Do you have a cough?: No Do you have any weakness?: No Are you experiencing any nausea/vomitting?: No Do you have any diarrhea?: No Are you experiencing any unusual bleeding?: No Do you have any muscle aches/pain?: No Do you have any abdominal pain?: No Are you experiencing loss of taste or smell?: No Other Medical History Have you received the Flu Vaccine for this season: Yes Have you received the Pneumonia Vaccine: No Review of Systems Review of Systems Review of systems (narrative): Negative *Cardiovascular Comments: Negative *Gastrointestinal Comments: Negative *Genitourinary Comments: Negative *Musculoskeletal Comments: Negative *Neurologic Comments: Negative Meds Home Medications and Allergies Home Medications ?Medication ?Instructions ?Recorded ?Confirmed ?Type triamcinolone acetonide 0.1 % 1 applic topical BID #30 grams 01/28/24 03/15/25 Rx topical ointment pseudoephedrine-guaifenesin ER 60 1 tab PO BID PRN col d symptoms #30 06/23/24 03/15/25 Rx mg-600 mg tablet,extend release tabs 12hr (Mucinex D) omeprazole 40 mg capsule,delayed See Rx Instructions . Route 10/18/24 03/15/25 Rx release .COMPLEX #90 caps diclofenac sodium 50 mg See Rx Instructions .Route 0 12/27/24 03/15/25 Rx tablet,delayed release .COMPLEX #90 tabs cetirizine 10 mg tablet See Rx Instructions .Route 0 12/28/24 03/15/25 Rx .COMPLEX #30 tabs sodium,potassium,mag sulfates 17.5 See Rx Instructions PO .COMPLEX 03/03/25 03/15/25 Rx gram-3.13 gram-1.6 gram oral soln #354 mL (Suprep Bowel Prep Kit) peg 3350-electrolytes 236 240 ml PO Q10M colonscopy #4 ,000 mL 03/08/25 03/15/25 Rx gram-22.74 gram-6.74 gram-5.86 gram solution (Golytely) galcanezumab-gnlm 120 mg/mL 120 mg SQ QMONTH chronic 0 03/09/25 03/15/25 Rx subcutaneous pen injector intractable migraine w/o aur a #1 mL (Emgality Pen) ubrogepant 100 mg tablet (Ubrelvy) See Rx Instructions .Route 03/09/25 03/15/25 Rx .COMPLEX #10 tabs New Prescriptions to Start Prescriptions: Allergies Allergy/AdvReac Type Severity Reaction Status Date / Time cephalexin (CEPHALEXIN) Allergy Unknown BREATHING Verified 03/15/25 12:58 DIFFICULTY Exam Data for Last 24 hours I & O for Last 24 hours: Intake & Output 03/09/25 03/10/25 03/11/25 03/12/25 23:59 23:59 23:59 23:59 Weight 274 lb *Routine HEENT Exam Head: Present normocephalic Eye: Present EOMI and PERRL ENT: Present mucous membranes moist *Routine Neck Exam Neck: Present supple *Routine Respiratory Exam Respiratory: Present CTA bilaterally *Routine Cardiovascular Exam Cardiovascular: Present RRR *Routine Abdominal Exam Abdominal: Present soft and normoactive bowel sounds; Absent tenderness *Routine Rectal Exam Rectal:: deferred *Routine Genitalia Exam Genitalia:: deferred *Routine Extremities Exam Extremities: Absent cyanosis, clubbing or edema *Routine Skin Exam Skin: Present warm; Absent rash *Routine Neurological Exam Neurological: Present alert and oriented X3 Assessment and Plan *Assessment and plan (1) Positive colorectal cancer screening using Cologuard test: Status: Acute Category: Medical Code(s): R19.5 - Other fecal abnormalities (2) Colon cancer screening: Status: Acute Category: Medical Code(s): Z12.11 - Encounter for screening for malignant neoplasm of colon Plan A/P: 1. Positive Cologuard test is the preprocedural diagnosis. The patient will be anesthetized/sedated using MAC sedation. The patient has been seen and examined. Cardiac and lung assessment prior to the examination is stable. Proceed with planned screening colonoscopy.
--- NOTE | 2025-03-15 07:26 | [facility].PROCNOTE ---
[facility] Procedure Note Date: 03/15/25 Time: 14:47 Procedure Note:: Colonoscopy Procedure Report: Colonoscopy with cold snare polypectomy Endoscopist: Regino Jeong II, MD Referring physician: SID Prakash Date of Procedure: March 15, 2025 Equipment: Olympus [id number] adult colonoscope Sedation: MAC sedation Indication: Mrs. Caraballo is a 49-year-old female who is here for initial screening colonoscopy secondary to a positive Cologuard test in April 2024. The patient reports no abdominal pain, weight loss, change in her bowel habits or rectal bleeding. She reports no family history of colon cancer. Her father had prostate cancer. The examination is deemed medically necessary for screening colonoscopy. Procedure: Prior to the procedure, a history and physical exam was performed, and patient's medications and allergies were reviewed. The risks, benefits and alternatives of the sedation and procedure were discussed with the patient. All questions were answered and informed consent was obtained. The patient was brought to the procedure room. Patient identification and proposed procedure were verified by the physician and the nurse. The patient was placed in a left lateral decubitus position and the scope was passed under direct vision. Throughout the procedure, the patient's blood pressure, pulse, and oxygen saturations were monitored continuously. The colonoscopy was accomplished without difficulty. The patient tolerated the procedure well. Findings: On digital rectal examination there was normal rectal tone. There were no external hemorrhoids. The colonoscope was introduced through the anal canal to the rectum and advanced to the cecum. The ileocecal valve and appendiceal orifice were identified. The scope was advanced a short distance into the ileum which appeared grossly normal. The scope was then withdrawn into the colon. There was a single 3 to 4 mm ascending colon polyp removed via cold snare polypectomy. The remaining cecum, ascending, transverse, descending, sigmoid and rectum were grossly normal. There were no mucosal abnormalities identified. Upon retroflexion within the rectum there were grade 1-2 internal hemorrhoids. The preparation was excellent throughout with Lexa Preparation Score of 9. The cecal time was 12 minutes. Impression: 1. Diminutive ascending colon polyp (3 to 4 mm) Plan: I will follow-up the polyp histology and recommend repeat screening/surveillance colonoscopy again in 10 years.
[2025-03-15 12:54] VITALS: BP 139/84; PULSE 90; RESP 18; TEMP 36.3; O2SAT 98
[2025-03-15] MEDS: LACTATED RINGERS 1000ML 1,000 ML 50 ML IV (13:10)
[2025-03-15 14:48] VITALS: BP 104/54; PULSE 89; RESP 17; TEMP 36.6; O2SAT 94
[2025-03-15 14:58] VITALS: BP 105/56; PULSE 76; RESP 17; TEMP 36.6; O2SAT 95
[2025-03-15 15:08] VITALS: BP 110/74; PULSE 71; RESP 17; TEMP 36.6; O2SAT 95
[2025-03-15 15:13] VITALS: BP 107/55; PULSE 81; RESP 17; TEMP 36.6; O2SAT 96
== END 2025-03-15 15:17 | disposition home or self-care (01) ==
PROVIDERS: PCP Nurse Practitioner Family; Visit Provider Internal Medicine Gastroenterology
PROC: 0DJD8ZZ Inspection of Lower Intestinal Tract, Via Natural or Artificial Opening Endoscopic (ICD-10-PCS; CPT 45378; principal; 2025-03-15 14:00)
DX: Z12.11 Encounter for screening for malignant neoplasm of colon (principal); R19.5 Other fecal abnormalities; K63.5 Polyp of colon; Z80.42 Family history of malignant neoplasm of prostate; M79.7 Fibromyalgia; F17.210 Nicotine dependence, cigarettes, uncomplicated; Z88.1 Allergy status to other antibiotic agents; Z79.899 Other long term (current) drug therapy
CPT/HCPCS: 45385; J2003; J2704; J7120